=== PATIENT | female | born 1945 | race Caucasian/White ===

== ENCOUNTER 2017-11-15 14:19 | Emergency (ER) | payer MEDICARE ==
[2017-11-15] MEDS ORDERED: Cyclobenzaprine 10 MG Tab PO ONE (15:31)
--- NOTE | 2017-11-15 15:34 | EDM.PDOC ---
ED HPI GENERAL MEDICAL PROBLEM - General Chief Complaint: Neck Problem Stated Complaint: STIFF NECK BUT MAY HAVE HAD FLU Time Seen by Provider: 11/15/17 15:29 Source of Information: Reports: Patient, Family, RN Notes Reviewed History Limitations: Reports: No Limitations - History of Present Illness INITIAL COMMENTS - FREE TEXT/NARRATIVE: 72-year-old female presents emergency department today with complaint of neck pain, she is recently got over the flu has recovered from that however she is not sure if she slept on her neck wrong but she has had increased pain she can put her chin on her chest but has difficulty turning side to side - Related Data Allergies Allergy/AdvReac Type Severity Reaction Status Date / Time codeine Allergy Hives Verified 11/15/17 15:19 Latex, Natural Rubber Allergy Itching Verified 11/15/17 15:19 Sulfa (Sulfonamide Allergy Muscle Verified 11/15/17 15:19 Antibiotics) Aches Home Meds: Home Meds Exenatide [Byetta] 11/15/17 [History] Levothyroxine [Synthroid] 11/15/17 [History] atorvaSTATin [Lipitor] 11/15/17 [History] metFORMIN [Glucophage] 11/15/17 [History] Past Medical History Cardiovascular History: Reports: High Cholesterol Endocrine/Metabolic History: Reports: Diabetes, Type II Social & Family History - Tobacco Use Smoking Status *Q: Never Smoker ED ROS GENERAL - Review of Systems Review Of Systems: See Below Constitutional: Denies: Fever, Chills HEENT: Reports: Other (Neck pain) Respiratory: Reports: No Symptoms Cardiovascular: Reports: No Symptoms GI/Abdominal: Reports: No Symptoms : Reports: No Symptoms Musculoskeletal: Reports: Neck Pain Skin: Reports: No Symptoms Neurological: Reports: No Symptoms ED EXAM, UPPER BACK/NECK PAIN - Physical Exam Exam: See Below Text/Narrative:: Examination of the neck is supple no thyromegaly no tracheal deviation she is tender paraspinally no spinal tenderness limited range of motion for rotation but she can flex and extend the neck Exam Limited By: No Limitations General Appearance: Alert, WD/WN, No Apparent Distress Cardiovascular/Respiratory: No Respiratory Distress Course - Vital Signs Last Recorded V/S: Last Vital Signs Temp 98.4 F 11/15/17 15:11 Pulse 88 11/15/17 15:11 Resp 16 11/15/17 15:11 BP 150/81 H 11/15/17 15:11 Pulse Ox 91 L 11/15/17 15:11 - Orders/Labs/Meds Meds: Medications Discontinued Medications Generic Name Dose Route Start Last Admin Trade Name Yohana PRN Reason Stop Dose Admin Cyclobenzaprine HCl 10 mg 11/15/17 15:31 11/15/17 15:49 Flexeril PO 11/15/17 15:32 10 mg ONETIME ONE Administration Departure - Departure Time of Disposition: 16:31 Disposition: Home, Self-Care 01 Condition: Good Clinical Impression: Cervical strain Qualifiers: Encounter type: initial encounter Qualified Code(s): S16.1XXA - Strain of muscle, fascia and tendon at neck level, initial encounter - Discharge Information Referrals: PCP,None [Primary Care Provider] - Forms: ED Department Discharge Additional Instructions: Use ibuprofen as needed for pain control, try Flexeril as needed for muscle relaxants, Please followup with your primary care provider in 3-5 days if not better, please call return to the emergency department with worsening of symptoms. - Assessment/Plan Plan: Assessment Acuity = acute Site and laterality = cervical strain Etiology = secondary to muscle spasm Manifestations = none Location of injury = Home Lab values = none Plan She had good improvement with combination Flexeril and heat pad her follow-up with primary care 3-5 days if not better This note was dictated using [employer] voice recognition software please call with any questions on syntax or alysia.
== END 2017-11-15 17:35 | disposition home or self-care (01) ==
LOC: JP.ED 14:19
DX: S16.1XXA Strain of muscle, fascia and tendon at neck level, initial encounter (principal); E78.00 Pure hypercholesterolemia, unspecified; E11.9 Type 2 diabetes mellitus without complications; Z88.5 Allergy status to narcotic agent; Z91.040 Latex allergy status; Z88.2 Allergy status to sulfonamides; X58.XXXA Exposure to other specified factors, initial encounter
CPT/HCPCS: 99283; A9270